=== PATIENT | female | born 1970 | race Caucasian/White ===

== ENCOUNTER → 2016-06-29 | Outpatient (CLI) | payer MEDICARE ==
[~2016-06-29] MED LIST: CLEOCIN GENERI150 MG PO; ESTRADIOL0.5 MG PO; HYDROCHLOROTHIA25 M1 PO; HYDROCODONE BIT1 T39 PO; KLONOPIN1 M2 PO; METOPROLOL25 MG PO; NEURONTIN 300M300 MG PO; OXAZEPAM 10MG C10 M1 PO; PAXIL20 MG PO; PERCOCET 325 MG1 TA4 PO; POTASSIUM CHLO20 ME2 PO; VICODIN 7.5/501 EACH PO
[2016-06-29 21:06] LABS: AMPHETAMINES/METAMPHETAMINES NEGATIVE ng/mL (<1000)
== END ==
LOC: LAB 16:05
PROVIDERS: Nurse Practitioner Family
DX: F41.9 Anxiety disorder, unspecified (principal); Z79.899 Other long term (current) drug therapy

== ENCOUNTER → 2016-12-16 | Outpatient (CLI) | payer MEDICARE ==
[2016-12-16 14:53] LABS: BUN 10 mg/dL (7-18)
[2016-12-16 15:11] LABS: GFR (ESTIMATED) 48 ML/MIN (59-)
[2016-12-16 15:39] LABS: AMPHETAMINES/METAMPHETAMINES NEGATIVE ng/mL (<1000)
== END ==
LOC: LAB 12:46
PROVIDERS: Emergency Medicine
DX: I10 Essential (primary) hypertension (principal); Z79.899 Other long term (current) drug therapy

== ENCOUNTER → 2017-03-15 | Outpatient (CLI) | payer MEDICARE ==
[2017-03-15 16:35] LABS: AMPHETAMINES/METAMPHETAMINES NEGATIVE ng/mL (<1000)
== END ==
LOC: LAB 14:10
PROVIDERS: Emergency Medicine
DX: Z79.899 Other long term (current) drug therapy (principal)